=== PATIENT | female | born 1955 ===

== ENCOUNTER 2024-09-18 05:00 | Outpatient (RCR) | payer MEDICARE, SELFPAY | END 2024-10-17 23:55 | disposition home or self-care (01) | LOC: GPT 05:00 | PROVIDERS: Visit Provider Neurological Surgery | DX: M54.17 Radiculopathy, lumbosacral region (principal); M47.816 Spondylosis without myelopathy or radiculopathy, lumbar region | CPT/HCPCS: 97110; 97112; 97161 ==

== ENCOUNTER 2024-10-18 05:00 | Outpatient (RCR) | payer MEDICARE, SELFPAY | END 2024-11-17 23:59 | disposition home or self-care (01) | LOC: GPT 05:00 | PROVIDERS: Visit Provider Neurological Surgery | DX: M54.17 Radiculopathy, lumbosacral region (principal) | CPT/HCPCS: 97110; 97112; 97140; 97164 ==

== ENCOUNTER 2024-11-18 06:30 | Outpatient (RCR) | payer MEDICARE, SELFPAY | END 2024-11-23 11:47 | disposition home or self-care (01) | LOC: GPT 06:30 | PROVIDERS: Visit Provider Neurological Surgery | DX: M54.17 Radiculopathy, lumbosacral region (principal) | CPT/HCPCS: 97110 ==